=== PATIENT | female | born 1975 | race Caucasian/White ===

== ENCOUNTER 2016-12-24 16:50 | Emergency (ER) | payer MEDICAID ==
[~2016-12-24] VITALS: Ht 149.9 cm; Wt 81.2 kg
[2016-12-24 16:56] VITALS: BP 125/60
[2016-12-24] MEDS ORDERED: KETOROLAC 60 MG/2 ML VIAL IM ONE (18:20)
--- NOTE | 2016-12-24 18:35 | NUR ---
41/F TO ED WITH C/O LOWER BACK PAIN RADIATING TO BILAT FLANKS X3 DAYS WITH PAIN 8/10. DENIES PAIN UPON URINATION. LUNGS CLEAR BILAT. HR EVEN AND REGULAR. AAOX4. VSS. NO SIGNS OF DISTRESS.
[2016-12-24 18:43] LABS: APPEARANCE,URINE CLEAR (CLEAR); BILIRUBIN,URINE NEGATIVE (NEGATIVE); BLOOD, URINE TRACE-I (NEGATIVE); COLOR,URINE YELLOW (YELLOW); LEUKOCYTE ESTERASE ,URINE NEGATIVE (NEGATIVE); NITRITE, URINE NEGATIVE (NEGATIVE); PH,URINE 5.5 (5.0-9.0); PROTEIN,URINE NEGATIVE (NEGATIVE); UGLUCOSE NEGATIVE (NEGATIVE); UROBILINOGEN,URINE 0.2 EU/dL (0.2 - 1)
[2016-12-24 18:46] LABS: CALCIUM 8.5 mg/dL (8.5-10.1); CREATININE 0.8 mg/dL (0.6-1.3)
[2016-12-24 18:54] LABS: RBC,URINE NONE SEEN /HPF (0-5)
[2016-12-24 18:55] LABS: BACTERIA,URINE None Seen /HPF (None Seen); SQUAMOUS EPITHELIAL CELL,UR None Seen /LPF (0-3 (FEW)); WBC,URINE NONE SEEN /HPF (0-5)
[2016-12-24 19:08] VITALS: BP 125/60
--- NOTE | 2016-12-24 19:09 | NUR ---
Patient discharged with v/s stable. Written and verbal after care instructions given and explained. Patient alert, oriented and verbalized understanding of instructions. Ambulatory with steady gait. All questions addressed prior to discharge. ID band removed. Patient advised to follow up with PMD. Rx of SOMA AND MOTRIN given. Patient educated on indication of medication including possible reaction and side effects. Opportunity to ask questions provided and answered.
== END 2016-12-24 19:09 | disposition home or self-care (01) ==
LOC: MED 16:50
DX: M54.5 Low back pain (principal); R60.9 Edema, unspecified
CPT/HCPCS: 36415; 72100; 80048; 81001; 96372; 99285; J1885

== ENCOUNTER 2023-09-11 12:40 | Emergency (ER) | payer MEDICAID ==
[~2023-09-11] VITALS: Ht 157.5 cm; Wt 72.6 kg
[2023-09-11 13:14] VITALS: BP 126/71; PULSE 62; RESP 18; TEMP 98; O2SAT 98
[2023-09-11] MEDS ORDERED: ACETAMINOPHEN 325 MG TAB PO ONE (13:40)
[2023-09-11] MEDS ORDERED: ACET-8905 PO (15:08)
[2023-09-11] MEDS ORDERED: IBUP-2213 PO (15:08)
[2023-09-11 15:47] VITALS: BP 125/72; PULSE 70; RESP 18; TEMP 98; O2SAT 99
== END 2023-09-11 15:47 | disposition home or self-care (01) ==
LOC: MED 12:40
DX: S82.892A Other fracture of left lower leg, initial encounter for closed fracture (principal); X58.XXXA Exposure to other specified factors, initial encounter; Y93.89 Activity, other specified; Y92.89 Other specified places as the place of occurrence of the external cause; Y99.8 Other external cause status
CPT/HCPCS: 29515; 73610; 99283